=== PATIENT | female | born 2005 | race Caucasian/White ===

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

== ENCOUNTER → 2023-11-07 | Outpatient (CLI) | payer BC ==
[2023-11-07 23:04] LABS: Basophils # (A) 0.05 X 10*3/uL (0.00-0.10); Basophils % (A) 0.8 %; HGB 14.1 g/dL (12.0-15.0); Lymphocytes # (A) 2.17 X 10*3/uL (0.90-5.00); Lymphocytes % (A) 32.8 %; MCV 90.3 FL (80.0-97.0); Mean Platelet Volume 11.8 FL (9.5-12.2); Monocytes # (A) 0.56 X 10*3/uL (0.20-1.00); Monocytes % (A) 8.5 %; NRBC Per 100 WBC 0 X 10*3/uL (0.00-0.01); Neutrophils # (A) 3.62 X 10*3/uL (1.80-7.70); Neutrophils % (A) 54.6 %; Platelet Count 205 X 10*3/uL (140-440); RBC 4.87 X 10*6/uL (4.10-5.20); RDW 12.3 % (11.5-14.5); WBC 6.62 X 10*3/uL (4.50-10.00)
[2023-11-07 23:40] LABS: BUN/Creat Ratio 18.38 Ratio (12.00-20.00); Blood Urea Nitrogen 14.7 mg/dL (9.0-27.0); Chloride 106 mmol/L (96-109); Chol/HDL Ratio 2.09 Ratio; Glucose 89 mg/dL (70-110); Iron 79 UG/DL (50-170); LDL Cholesterol,Calculated 58.3 mg/dL (0.0-131.0); Potassium 4.3 mmol/L (3.5-5.5); Sodium 142 mmol/L (135-145); Total Iron Binding Capacity 403 UG/DL (228-460); VLDL Calculation 6.46 mg/dL (5.00-40.00)
[2023-11-07 23:41] LABS: ALT 14 U/L (8-44); AST 20 U/L (13-35); Albumin 4.9 g/dL (3.8-4.9); Albumin/Globulin Ratio 1.88 Ratio (1.60-3.17); Alkaline Phosphatase 90 U/L (41-126); Calcium 9.9 mg/dL (8.7-10.3); Carbon Dioxide 22.1 mmol/L (21.6-31.8); Globulin 2.6 g/dL (1.6-3.3); Total Bilirubin 0.6 mg/dL (0.3-1.2); Total Protein 7.5 g/dL (6.2-8.2)
== END | disposition home or self-care (01) ==
LOC: LABWHC1 10:29
PROVIDERS: ATTEND Nurse Practitioner Family
DX: Z00.00 Encounter for general adult medical examination without abnormal findings
CPT/HCPCS: 36415; 80053; 80061; 82306; 83540; 83550; 84443; 85025

== ENCOUNTER → 2024-01-28 | Outpatient (CLI) | payer BC ==
--- NOTE | 2024-02-12 20:05 | CE ---
EVENT MONITOR STUDY: 14 days event monitor. INDICATION: Cardiac arrhythmia. The patient was monitored for 14 days. The baseline rhythm appeared to be sinus mechanism. No evidence of any atrial fibrillation or atrial flutter noted. No evidence of sinus pause or sinus arrest noted. The patient did have multiple episodes of accelerated junctional rhythm. The patient was symptomatic with dizziness and lightheadedness and the symptoms were associated with accelerated junctional rhythm as well as with sinus rhythm. CONCLUSION: 1. This is a 14-day event monitor. 2. The baseline rhythm appeared to be sinus mechanism. 3. Few episodes of accelerated junctional rhythm noted. 4. No evidence of atrial fibrillation or atrial flutter. 5. No evidence of sinus pause or sinus arrest. 6. The patient was symptomatic with dizziness and lightheadedness and these symptoms were associated with normal sinus mechanism as well as accelerated junctional rhythm. MMODL / IJN: [id number] / LEONEL
== END | disposition home or self-care (01) ==
LOC: RADECHMAIN 08:10
PROVIDERS: ATTEND Family Medicine
DX: I49.9 Cardiac arrhythmia, unspecified (principal)
CPT/HCPCS: 93270

== ENCOUNTER 2024-05-23 07:01 | Day surgery (SDC) | payer BC ==
[2024-05-20 09:58] VITALS: BMI 22.8
[~2024-05-23 07:01] MED LIST: SODIUM CHLORIDE 0.9% 1,000 ML IV SCH
[2024-05-23 07:24] VITALS: BP 131/75; PULSE 112; RESP 16; TEMP 99.1
[2024-05-23] MEDS: SODIUM CHLORIDE 0.9% 500 ML 500 ML IV ONE (09:15)
--- NOTE | 2024-05-23 19:24 | P.EPPROC ---
- EP Procedure Note Electrophysiology Procedure Note: Diagnosis: Recurrent syncope Twelve-lead EKG at baseline shows sinus rhythm normal [place] narrow QRS normal ST segments normal QT interval no delta waves Tilt able test for protocol Baseline blood pressure 129/78 mmHg, baseline heart rate 82 bpm. Patient complained of nausea She was tilted upright in an angle of 70 degrees per protocol Mild increase in heart rate. No change in blood pressure heart rates ranged from 80 to 100 bpm The patient complained of numerous symptoms such as nausea dizziness lightheadedness tingling of the legs visual changes, seeing black spots, about to pass out tunnel vision shadows on the wall Her blood pressure remained between 125 240 mmHg while her heart rate remained in the 80s and 90s. No arrhythmias She was laid supine and the end of the procedure Impression Normal twelve-lead EKG A variety of symptoms as described above without any significant change in heart rate or blood pressure
== END 2024-05-23 09:43 | disposition home or self-care (01) ==
LOC: CATHEP 07:01
PROVIDERS: ATTEND Internal Medicine Clinical Cardiac Electrophysiology
DX: R55 Syncope and collapse (principal); R11.0 Nausea
CPT/HCPCS: 81025; 93660